=== PATIENT | male | born 1950 | race Caucasian/White ===

== ENCOUNTER 2022-08-31 16:28 | Inpatient (IN) | payer OTHER, MEDICARE ==
[~2022-08-31] VITALS: Ht 170.2 cm; Wt 77.1 kg
--- NOTE | 2022-08-31 17:10 | NUR ---
sent by pmd from home for "failure to thrive". AMBULATORY, PLACED IN BED, AAOX4, BREATHING UNLABORED SATURATING AT 97%RA.
[2022-08-31] MEDS ORDERED: IV NS 0.9% 1,000 ML BAG IV ONE (17:30)
--- NOTE | 2022-08-31 17:42 | NUR ---
XRAY AT BEDSIDE
[2022-08-31 18:00] LABS: BASOPHILS # (AUTO) 0.1 K/uL (0.0-0.2); BASOPHILS % (AUTO) 1.3 % (0.0-2.0); EOSINOPHILS % (AUTO) 0.7 % (0.0-6.0); HEMATOCRIT 40 % (39-51); HEMOGLOBIN 13.2 g/dL (13.5-17.5); LYMPHOCYTES # (AUTO) 1.2 K/uL (0.8-4.8); LYMPHOCYTES % (AUTO) 19.8 % (20.0-44.0); MEAN CORPUSCULAR HGB CONC 33 g/dl (31.0-36.0); MEAN CORPUSCULAR VOLUME 82 fL (80-96); MONOCYTES # (AUTO) 0.4 K/uL (0.1-1.30); MONOCYTES % (AUTO) 6.7 % (2.0-12.0); NEUTROPHILS # (AUTO) 4.4 K/uL (1.8-8.9); NEUTROPHILS % (AUTO) 71.5 % (43.0-81.0); PLATELET COUNT (AUTO) 172 K/uL (150-450); RED BLOOD CELL COUNT(AUTO) 4.83 MIL/uL (4.5-6.0); WHITE BLOOD COUNT (AUTO) 6.2 K/uL (4.3-11.0)
[2022-08-31 18:05] LABS: CALCIUM, SERUM 9.9 mg/dL (8.5-10.1); CARBON DIOXIDE 24 mmol/L (21-32); CHLORIDE 106 mmol/L (98-107); GLUCOSE 112 mg/dL (74-106); POTASSIUM 3.8 mmol/L (3.5-5.1); SODIUM SERUM 143 mmol/L (136-145); UREA NITROGEN, BLOOD 23 mg/dL (7-18)
[2022-08-31 18:23] LABS: ALANINE AMINOTRANSFERASE 25 U/L (12-78); ALBUMIN 3.8 g/dL (3.4-5.0); ALKALINE PHOSPHATASE 98 U/L (46-116); ASPARTATE AMINOTRANSFERASE 16 U/L (15-37); BILIRUBIN,DIRECT 0.1 mg/dL (0.0-0.2); BILIRUBIN,TOTAL 0.6 mg/dL (0.2-1.0); TOTAL PROTEIN, SERUM 7.5 g/dL (6.4-8.2)
--- NOTE | 2022-08-31 18:35 | NUR ---
covid swab taken
--- NOTE | 2022-08-31 18:42 | NUR ---
MOVE SHEET SUBMITTED.
--- NOTE | 2022-08-31 21:53 | NUR ---
REPORT GIVEN TO [facility]AU[facility] ROOM 301-1 FOR SOFÍA
[2022-08-31] MEDS ORDERED: MAG HYDROX/AL HYDROX/SIMETH 30 ML UDC PO PRN (22:00)
[2022-08-31] MEDS ORDERED: Z GUARD REMEDY 4 OZ OINT TP PRN (22:00)
[2022-08-31] MEDS ORDERED: ZOLPIDEM TARTRATE 5 MG TABLET PO PRN (22:00)
[2022-08-31] MEDS ORDERED: ONDANSETRON HCL/PF 4 MG/2 ML VIAL IVP PRN (22:00)
[2022-08-31] MEDS ORDERED: ACETAMINOPHEN 325 MG TABLET PO PRN (22:00)
[2022-08-31] MEDS ORDERED: MAGNESIUM HYDROXIDE 30 ML UDC PO PRN (22:00)
[2022-08-31] MEDS ORDERED: DEXTROSE 50%-WATER 50 ML DISP.SYRIN IV PRN (22:00)
[2022-08-31] MEDS: BLOOD SUGAR DIAGNOSTIC 1 EACH STRIP IN SCH (22:28)
[2022-08-31] MEDS: ENOXAPARIN SODIUM 40 MG/0.4 ML DISP.SYRIN SQ SCH (22:30)
[2022-08-31] MEDS ORDERED: ENOXAPARIN SODIUM 40 MG/0.4 ML DISP.SYRIN SQ ONE (22:31)
[2022-08-31 22:47] VITALS: BP 161/89
--- NOTE | 2022-09-01 00:01 | NUR ---
RN MS ADMISSION NOTES ADMITTED A 72 YEAR/OLD MALE CAME FROM ER VIA WHEEL CHAIR. A/O X 4 NO S/S OF PAIN OR ANY DISCOMFORT NOTED AT THIS TIME.BREATHING UNLABORED. TRANSFER PATIENT TO BED ASSISTED, SAFETY AND SECURED.PATIENT IS FRISIAN SPEAKING BUT ABLE TO UNDERSTAND COMORAN, CONTINENT AND USES URINAL FOR NOW. PM CARE RENDERED.SKIN ASSESSMENT DONE, NOTED WOUND ON THE RIGHT LEG PICTURE TAKEN AND RECORDED.WITH IV ACCESS AT RFA #20G ON SL, PATENT AND INTACT. HISTORY TAKEN AND RECORDED. PHYSICAL ASSESSMENT DONE AND RECORDED. PATIENT ORIENTED TO THE UNIT POLICY AND HOW TO USE THE CALL LIGHT. INFORMED ATTENDING PHYSICIAN THAT THE PATIENT TIS ADMITTED AT ROOM 309-1.PATIENT IS ON CONSISTENT CARB AND ABLE TO SWALLOW WHOLE PILL. NO PHYSICAL WEAKNESS NOTED AT THIS THIS. NO S/S OF CHEST OR ANY DISTRESS AT THIS TIME, KEPT BED ON LOWER LOCKED POSITION, KEPT SIDE RAILS UP X2 ALL THE TIME. KEPT BED CALL LIGHT WITHIN AT REACH. WILL CONTINUE TO MONITOR FOR SOFÍA.
--- NOTE | 2022-09-01 06:36 | NUR ---
MS RN CLOSING NOTES PATIENT IS IN BED, A/O X 4 ON MODERATE HIGH BACK REST POSITION. NO SIGNS OF PAIN OR ANY DISCOMFORT AT THIS TIME. WITH IV ACCESS AT RIGHT FA#20G SL PATENT AND INTACT.ALL DUE MEDICATIONS GIVEN, ALL NEEDS ATTENDED. ALL DUE MEDICATIONS GIVEN. ALL NEEDS ATTENDED. KEPT PATIENT WARM AND COMFORTABLE. KEPT BED ON LOWER LOCKED POSITION. KEPT SIDE RAILS UP X 2 ALL THE TIME. WILL ENDORSED TO AM SHIFT FOR SOFÍA.
[2022-09-01] MEDS: BLOOD SUGAR DIAGNOSTIC 1 EACH STRIP IN SCH ×4 (06:37→22:15)
[2022-09-01 06:59] LABS: BASOPHILS % (AUTO) 0.4 % (0.0-2.0); EOSINOPHILS % (AUTO) 0.7 % (0.0-6.0); HEMATOCRIT 39 % (39-51); HEMOGLOBIN 13.2 g/dL (13.5-17.5); LYMPHOCYTES # (AUTO) 1.5 K/uL (0.8-4.8); LYMPHOCYTES % (AUTO) 26.3 % (20.0-44.0); MEAN CORPUSCULAR HGB CONC 34 g/dl (31.0-36.0); MEAN CORPUSCULAR VOLUME 81 fL (80-96); MONOCYTES # (AUTO) 0.4 K/uL (0.1-1.30); MONOCYTES % (AUTO) 6.9 % (2.0-12.0); NEUTROPHILS # (AUTO) 3.8 K/uL (1.8-8.9); NEUTROPHILS % (AUTO) 65.7 % (43.0-81.0); PLATELET COUNT (AUTO) 165 K/uL (150-450); RED BLOOD CELL COUNT(AUTO) 4.77 MIL/uL (4.5-6.0); WHITE BLOOD COUNT (AUTO) 5.7 K/uL (4.3-11.0)
[2022-09-01 07:00] VITALS: BP 155/90
[2022-09-01 07:17] LABS: ALANINE AMINOTRANSFERASE 23 U/L (12-78); ALBUMIN 3.6 g/dL (3.4-5.0); ALKALINE PHOSPHATASE 90 U/L (46-116); ASPARTATE AMINOTRANSFERASE 12 U/L (15-37); BILIRUBIN,TOTAL 0.8 mg/dL (0.2-1.0); CALCIUM, SERUM 9.5 mg/dL (8.5-10.1); CARBON DIOXIDE 28 mmol/L (21-32); CHLORIDE 107 mmol/L (98-107); CREATININE 0.8 mg/dL (0.6-1.3); GLUCOSE 107 mg/dL (74-106); MAGNESIUM 1.7 mg/dL (1.8-2.4); PHOSPHORUS 3.4 mg/dL (2.5-4.9); POTASSIUM 3.8 mmol/L (3.5-5.1); SODIUM SERUM 143 mmol/L (136-145); TOTAL PROTEIN, SERUM 7.1 g/dL (6.4-8.2); UREA NITROGEN, BLOOD 16 mg/dL (7-18)
--- NOTE | 2022-09-01 07:20 | NUR ---
MS RN NOTES PATIENT IN BED ALERT ORIENTED X 4. NO ACUTE DISTRESS NOTED, BREATHING UNLABORED,DENIED ANY PAIN. IV ACCESS PATENT AND INTACT, NO REDNESS, NO SWELLING NOTED. SAFETY MEASURES IN PLACE, CALL LIGHT WITHIN REACH. WILL CONTINUE TO MONITOR ACCORDINGLY
[2022-09-01 07:23] LABS: CHOLESTEROL 154 mg/dL (<200); HDL CHOLESTEROL 60 mg/dL (40-60); LDL 82 mg/dL (0-99); TRIGLYCERIDES 127 mg/dL (30-150)
[2022-09-01 07:58] LABS: THYROID STIMULATING HORMONE 2.438 uIU/mL (0.358-3.74)
[2022-09-01] MEDS: PANTOPRAZOLE 40 MG VIAL IV SCH (09:01)
[2022-09-01] MEDS ORDERED: MAGNESIUM OXIDE 400 MG TABLET PO ONE (10:00)
[2022-09-01] MEDS ORDERED: LOSA25TA27 PO (10:09)
[2022-09-01] MEDS ORDERED: METF-440 PO (10:09)
[2022-09-01] MEDS ORDERED: TAMS-12 PO (10:09)
[2022-09-01] MEDS ORDERED: DULO20CA19 PO (10:09)
--- NOTE | 2022-09-01 11:16 | NUR ---
MS RN NOTES PATIENT SEEN AND EVALUATED BY DR DALEY, MADE AWARE THAT HOME MEDICATION RECONCILIATION NEEDS TO BE REVIEWED, PER MD SHE WILL LOOK AT IT. NO NEW ORDERED RECEIVED AT THIS TIME.
[2022-09-01] MEDS ORDERED: AMLO-213 PO (11:34)
[2022-09-01] MEDS ORDERED: ATOR40TA PO (11:34)
[2022-09-01 16:00] VITALS: BP 159/74
[2022-09-01 17:37] LABS: BILIRUBIN,URINE NEGATIVE (NEGATIVE); COLOR,URINE YELLOW (YELLOW); LEUKOCYTE ESTERASE ,URINE NEGATIVE (NEGATIVE); NITRITE, URINE NEGATIVE (NEGATIVE); PROTEIN,URINE TRACE mg/dl (NEGATIVE); UGLUCOSE NEGATIVE (NEGATIVE)
[2022-09-01 17:42] LABS: BACTERIA,URINE None seen /HPF (None Seen); MUCUS,URINE Few /LPF (None Seen); RBC,URINE 0-2 /HPF (0-2); WBC,URINE 0-2 /HPF (0-3)
--- NOTE | 2022-09-01 18:32 | NUR ---
MS RN NOTES PATIENT IN BED ALERT ORIENTED X 4. NO ACUTE DISTRESS NOTED, BREATHING UNLABORED,DENIED ANY PAIN. IV ACCESS PATENT AND INTACT, NO REDNESS, NO SWELLING NOTED. NEEDS ATTENDED AND ANTICIPATED. SAFETY MEASURES IN PLACE. CALL LIGHT WITHIN REACH. WILL ENDORSE TO NIGHT NURSE FOR CONTINUITY OF CARE
--- NOTE | 2022-09-01 19:30 | NUR ---
MS RN OPENING NOTE RECEIVED PATIENT SLEEPING IN BED. PT ALERT AND ORIENTED X 4, ABLE TO VERBALIZE NEEDS. NO ACUTE DISTRESS NOTED, WITH BREATHING EVEN, AND UNLABORED. DENIED ANY PAIN OR DISCOMFORT AT THIS TIME. IV ACCESS TO RIGHT FA #20G PATENT AND INTACT, NO REDNESS, NO SWELLING NOTED. SAFETY MEASURES IN PLACE: BED IN LOW POSITION, SR UP X2, CALL LIGHT WITHIN REACH. WILL CONTINUE TO MONITOR ACCORDINGLY
[2022-09-01 20:00] VITALS: BP 146/71
[2022-09-01] MEDS: ENOXAPARIN SODIUM 40 MG/0.4 ML DISP.SYRIN SQ SCH (21:56)
[2022-09-01] MEDS: INSULIN REGULAR, HUMAN 100 UNIT/ML 3 ML VIAL SQ PRN (22:16)
[2022-09-02 06:36] LABS: BASOPHILS % (AUTO) 0.5 % (0.0-2.0); EOSINOPHILS % (AUTO) 1.1 % (0.0-6.0); HEMATOCRIT 38 % (39-51); HEMOGLOBIN 13.2 g/dL (13.5-17.5); LYMPHOCYTES # (AUTO) 1.9 K/uL (0.8-4.8); LYMPHOCYTES % (AUTO) 37.8 % (20.0-44.0); MEAN CORPUSCULAR HGB CONC 35 g/dl (31.0-36.0); MEAN CORPUSCULAR VOLUME 80 fL (80-96); MONOCYTES # (AUTO) 0.4 K/uL (0.1-1.30); MONOCYTES % (AUTO) 7.7 % (2.0-12.0); NEUTROPHILS # (AUTO) 2.7 K/uL (1.8-8.9); NEUTROPHILS % (AUTO) 52.9 % (43.0-81.0); PLATELET COUNT (AUTO) 159 K/uL (150-450); RED BLOOD CELL COUNT(AUTO) 4.74 MIL/uL (4.5-6.0); WHITE BLOOD COUNT (AUTO) 5.1 K/uL (4.3-11.0)
--- NOTE | 2022-09-02 06:50 | NUR ---
MS RN CLOSING NOTE LEFT PATIENT SLEEPING IN BED. PT ALERT AND ORIENTED X 4, ABLE TO VERBALIZE NEEDS. NO ACUTE DISTRESS NOTED, WITH BREATHING EVEN, AND UNLABORED. DENIED ANY PAIN OR DISCOMFORT AT THIS TIME. IV ACCESS TO RIGHT FA #20G PATENT AND INTACT, NO REDNESS, NO SWELLING NOTED. SAFETY MEASURES IN PLACE: BED IN LOW POSITION, SR UP X2, CALL LIGHT WITHIN REACH. WILL ENDORSE PT TO AM SHIFT NURSE FOR SOFÍA.
[2022-09-02] MEDS: BLOOD SUGAR DIAGNOSTIC 1 EACH STRIP IN SCH ×4 (07:01→21:38)
[2022-09-02] MEDS: INSULIN REGULAR, HUMAN 100 UNIT/ML 3 ML VIAL SQ PRN ×4 (07:01→21:38)
[2022-09-02 07:02] LABS: CALCIUM, SERUM 9.5 mg/dL (8.5-10.1); CREATININE 0.8 mg/dL (0.6-1.3); MAGNESIUM 1.8 mg/dL (1.8-2.4); PHOSPHORUS 3.9 mg/dL (2.5-4.9); POTASSIUM 3.4 mmol/L (3.5-5.1)
--- NOTE | 2022-09-02 07:33 | NUR ---
MS RN OPENING NOTE RECEIVED PATIENT SLEEPING IN BED. PATIENT IS EASY TO AROUSE, ALERT AND ORIENTED X 4, ABLE TO VERBALIZE NEEDS. NO ACUTE DISTRESS NOTED, WITH BREATHING EVEN, AND UNLABORED. DENIED ANY PAIN OR DISCOMFORT AT THIS TIME. IV ACCESS TO RIGHT FA #20G PATENT AND INTACT, NO REDNESS, NO SWELLING NOTED. SAFETY MEASURES IN PLACE: BED IN LOW POSITION, SR UP X 2, CALL LIGHT WITHIN REACH. WILL CONTINUE TO MONITOR AND CARE FRO PATIENT PER HOSPITALIST MD's POC.
[2022-09-02 08:00] VITALS: BP 161/90
[2022-09-02] MEDS: PANTOPRAZOLE 40 MG VIAL IV SCH (08:18)
[2022-09-02] MEDS ORDERED: POTASSIUM CHLORIDE 20 MEQ TAB.PRT.SR PO SCH (12:00)
[2022-09-02 15:59] VITALS: BP 153/88
--- NOTE | 2022-09-02 18:32 | NUR ---
MS RN CLOSING NOTE (DAYSHIFT) PATIENT IN BED ALERT ORIENTED X 4. NO ACUTE DISTRESS NOTED, BREATHING UNLABORED,DENIED ANY PAIN. IV ACCESS PATENT AND INTACT, NO REDNESS, NO SWELLING NOTED. NEEDS ATTENDED AND ANTICIPATED. SAFETY MEASURES IN PLACE. CALL LIGHT WITHIN REACH. WILL ENDORSE TO NIGHT NURSE FOR CONTINUITY OF CARE.
--- NOTE | 2022-09-02 19:30 | NUR ---
MS RN OPENING NOTE RECEIVED PATIENT AWAKE IN BED, WATCHING TV AT THIS TIME. A/O X 4, ABLE TO VERBALIZE NEEDS, FRENCH SPEAKING. ON RA, BREATHING EVEN AND UNLABORED. DENIES ANY PAIN OR DISCOMFORT AT THIS TIME. IV ACCESS TO RIGHT FA #20G PATENT AND INTACT, NO REDNESS, NO SWELLING NOTED. SAFETY MEASURES IN PLACE: BED IN LOW POSITION, SR UP X 2, CALL LIGHT WITHIN REACH. WILL CONTINUE TO MONITOR AND ASSIST.
[2022-09-02 20:00] VITALS: BP 151/81
[2022-09-02] MEDS: ENOXAPARIN SODIUM 40 MG/0.4 ML DISP.SYRIN SQ SCH (21:26)
[2022-09-03 06:21] LABS: BASOPHILS % (AUTO) 0.6 % (0.0-2.0); HEMATOCRIT 38 % (39-51); HEMOGLOBIN 13.1 g/dL (13.5-17.5); LYMPHOCYTES # (AUTO) 1.6 K/uL (0.8-4.8); LYMPHOCYTES % (AUTO) 27.5 % (20.0-44.0); MEAN CORPUSCULAR HGB CONC 35 g/dl (31.0-36.0); MEAN CORPUSCULAR VOLUME 81 fL (80-96); MONOCYTES # (AUTO) 0.4 K/uL (0.1-1.30); MONOCYTES % (AUTO) 7.5 % (2.0-12.0); NEUTROPHILS # (AUTO) 3.6 K/uL (1.8-8.9); NEUTROPHILS % (AUTO) 63.4 % (43.0-81.0); PLATELET COUNT (AUTO) 153 K/uL (150-450); WHITE BLOOD COUNT (AUTO) 5.7 K/uL (4.3-11.0)
[2022-09-03] MEDS: BLOOD SUGAR DIAGNOSTIC 1 EACH STRIP IN SCH ×4 (06:39→21:15)
[2022-09-03] MEDS: INSULIN REGULAR, HUMAN 100 UNIT/ML 3 ML VIAL SQ PRN ×3 (06:39→17:54)
[2022-09-03 06:41] LABS: CALCIUM, SERUM 9.3 mg/dL (8.5-10.1); CARBON DIOXIDE 28 mmol/L (21-32); CHLORIDE 107 mmol/L (98-107); CREATININE 0.9 mg/dL (0.6-1.3); GLUCOSE 103 mg/dL (74-106); MAGNESIUM 1.9 mg/dL (1.8-2.4); PHOSPHORUS 3.6 mg/dL (2.5-4.9); POTASSIUM 3.6 mmol/L (3.5-5.1); SODIUM SERUM 141 mmol/L (136-145); UREA NITROGEN, BLOOD 19 mg/dL (7-18)
--- NOTE | 2022-09-03 06:48 | NUR ---
MS RN CLOSING NOTES PATIENT AWAKE IN BED. A/O X 4, ABLE TO VERBALIZE NEEDS, CZECH SPEAKING. STABLE ON RA, BREATHING EVEN AND UNLABORED. DENIES ANY PAIN OR DISCOMFORT AT THIS TIME. IV ACCESS TO RIGHT FA #20G PATENT AND INTACT, NO REDNESS, NO SWELLING NOTED. ALL CARE PROVIDED AND MEDS TOLERATED WELL. SAFETY MEASURES MAINTAINED: BED IN LOW POSITION, SIDERAILS UP X2, CALL LIGHT WITHIN REACH. WILL ENDORSE SOFÍA TO DAY SHIFT NURSE.
[2022-09-03 07:00] VITALS: BP 154/73
--- NOTE | 2022-09-03 07:15 | NUR ---
MS RN OPENING NOTE RECEIVED PATIENT AWAKE IN BED. ALERT AND ORIENTED X 4, ABLE TO VERBALIZE NEEDS. NO ACUTE DISTRESS NOTED, WITH BREATHING EVEN, AND UNLABORED. DENIED ANY PAIN OR DISCOMFORT AT THIS TIME. IV ACCESS TO RIGHT FA #20G PATENT AND INTACT, NO REDNESS, NO SWELLING NOTED. SAFETY MEASURES IN PLACE: BED IN LOW POSITION, SR UP X 2, CALL LIGHT WITHIN REACH. WILL CONTINUE TO MONITOR AND CARE FRO PATIENT PER HOSPITALIST MD's POC.
[2022-09-03] MEDS: PANTOPRAZOLE 40 MG TABLET.DR PO SCH (08:18)
[2022-09-03 16:00] VITALS: BP 158/79
--- NOTE | 2022-09-03 19:00 | NUR ---
MS RN CLOSING NOTE (DAYSHIFT) PATIENT IN BED ALERT ORIENTED X 4. NO ACUTE DISTRESS NOTED, BREATHING UNLABORED,DENIED ANY PAIN. IV ACCESS # 20 GAUGE SALINE LOCKED PIV TO RIGHT FORE ARM IS PATENT AND INTACT, NO REDNESS, NO SWELLING NOTED. NEEDS ATTENDED AND ANTICIPATED. SAFETY MEASURES IN PLACE. CALL LIGHT WITHIN REACH. WILL ENDORSE TO NIGHT NURSE FOR CONTINUITY OF CARE.
[2022-09-03 20:00] VITALS: BP 150/90
--- NOTE | 2022-09-03 20:26 | NUR ---
MS RN OPENING NOTES RECEIVED PATIENT IN BED, AWAKE. A/O X4 ABLE TO MAKE NEEDS KNOWN. WITH IV ACCESS ON RIGHT FORE ARM @20 SALINE LOCK, IV ACCESS NOTED TO BE CLEAN, PATENT AND INTACT. PATIENT ON ROOM AIR TOLERATING; BREATHING EVENLY, AND UNLABORED, NO SIGNS OF SOB, NOT IN DISTRESS NOTED. SAFETY MEASURE IN PLACED; HOB ELEVATED, BED LOCKED AND IN LOWEST POSITION, CALL LIGHT AND BEDSIDE TABLE WITH IN PATIENTS REACH.
[2022-09-03] MEDS: ENOXAPARIN SODIUM 40 MG/0.4 ML DISP.SYRIN SQ SCH (20:42)
--- NOTE | 2022-09-03 21:16 | NUR ---
RN NOTES BLOOD SUGAR CHECKED RESULT IS 120. NO INSULIN COVERAGE PER SLIDING SCALE.
--- NOTE | 2022-09-04 06:41 | NUR ---
MS RN CLOSING NOTES PATIENT IN BED, SLEEPING. EASILY AWAKEN WITH STIMULI AND WHEN CALLED BY NAME. A/O X4 ABLE TO MAKE NEEDS KNOWN. WITH IV ACCESS ON RIGHT FORE ARM @20 SALINE LOCK, IV ACCESS NOTED TO BE CLEAN, PATENT AND INTACT. PATIENT ON ROOM AIR TOLERATING; BREATHING EVENLY, AND UNLABORED, NO SIGNS OF SOB, NOT IN DISTRESS NOTED. ALL DUE MEDICATIONS ARE GIVEN. ALL NEEDS ARE MET. MADE SURE PATIENT IS COMFORTABLE. NO COMPLAINS OF PAIN AT THE MOMENT. SAFETY MEASURE IN PLACED; HOB ELEVATED, BED LOCKED AND IN LOWEST POSITION, CALL LIGHT AND BEDSIDE TABLE WITH IN PATIENTS REACH. WILL ENDORSE TO NEXT SHIFT NURSE FOR CONTINUITY OF CARE.
--- NOTE | 2022-09-04 07:15 | NUR ---
MS RN OPENING NOTES RECEIVED PATIENT IN BED,AWAKE, A/O X4 ABLE TO MAKE NEEDS KNOWN. WOLOF SPEAKER MOSTLY BUT UNDERSTANDS FAROESE. ON ROOM AIR TOLERATING; BREATHING EVENLY, AND UNLABORED, NO SIGNS OF SHORTNESS OF BREATH, NO DISTRESS NOTED. WITH IV ACCESS ON RFA G#20 SALINE LOCKED, INTACT AND FLUSHING WELL. DENIES PAIN NOR DISCOMFORT AT THE MOMENT. SAFETY MEASURES IN PLACE; HOB ELEVATED, BED LOCKED AND IN LOWEST POSITION, CALL LIGHT AND TRAY TABLE WITHIN EASY REACH. WILL CONTINUE TO MONITOR.
[2022-09-04] MEDS: BLOOD SUGAR DIAGNOSTIC 1 EACH STRIP IN SCH ×3 (07:36→17:30)
[2022-09-04] MEDS: PANTOPRAZOLE 40 MG TABLET.DR PO SCH (07:44)
[2022-09-04 08:00] VITALS: BP 168/85
[2022-09-04 16:00] VITALS: BP 155/82
--- NOTE | 2022-09-04 17:10 | NUR ---
MS RE EXAMINER NOTE PT DISCHARGED TO [facility] IN ST[facility] CONDITION, PT AOX4, MALIAN SPEAKING, ABLE TO MAKE NEEDS KNOWN. ON ROOM AIR BREATHING WITHOUT DIFFICULTY. NOT IN ANY FORM OF ACUTE DISTRESS. VITAL SIGNS TAKEN, STABLE, RECORDED. SKIN IS INTACT - REFUSED TO RETAKE PICTURES. PATIENT'S BELONGINGS HAVE BEEN ACCOUNTED FOR AND MEDICATIONS WERE RETRIEVED FROM THE PHARMACY, FORM HAS BEEN SIGNED. DISCHARGE INSTRUCTIONS RELAYED TO [facility] OF THE SAME [facility]. MED RECON INCLUDED. IV ACCESS R FOREARM G#20 REMOVED, PRESSURE GAUZE APPLIED. NO BLEEDING NOTED. PATIENT DENIED PAIN OR DISCOMFORT AT THIS MOMENT. PATIENT LEFT THE UNIT AT 1705 VIA Remote WITH 3 [employer]. MD AND CHARGE NURSE AWARE OF THE DISCHARGE.
== END 2022-09-04 17:05 | DRG 641 ==
LOC: ER 16:48 → MED 21:54
PROVIDERS: ADMIT Nurse Practitioner Acute Care; ATTEND Student in an Organized Health Care Education/Training Program
DX: R62.7 Adult failure to thrive (principal); E11.9 Type 2 diabetes mellitus without complications; E86.0 Dehydration; N40.0 Benign prostatic hyperplasia without lower urinary tract symptoms; Z20.822 Contact with and (suspected) exposure to COVID-19; F32.A Depression, unspecified; Z79.4 Long term (current) use of insulin; Z79.01 Long term (current) use of anticoagulants; R79.89 Other specified abnormal findings of blood chemistry
CPT/HCPCS: 36415; 71045-TC; 80048-TC; 80053-TC; 80061-TC; 80076-TC; 81001; 82962-TC; 83735-TC; 83880; 84100-TC; 84443-TC; 84484-TC; 85025-TC; 87081-TC; 97110-TC; 97116-TC; C9113; C9803; G0378; J1650; J1815; J7030